=== PATIENT | female | born 1995 | race Caucasian/White ===

== ENCOUNTER 2016-07-26 10:59 | Outpatient (CLI) | payer OTHER | END 2016-07-26 11:00 | disposition home or self-care (01) | DX: Z78.9 Other specified health status (principal) ==

== ENCOUNTER 2018-04-09 16:14 | Emergency (ER) | payer OTHER ==
[2018-04-09 17:04] LABS: BASOPHILS % (AUTO) 0.4 %; EOSINOPHILS # (AUTO) 0.2 10^3/uL (0.0-0.7); EOSINOPHILS % (AUTO) 1.8 %; HGB - HEMOGLOBIN 12.1 g/dL (12.0-16.0); LYMPHOCYTES # (AUTO) 1.7 10^3/uL (1.5-3.5); LYMPHOCYTES % (AUTO) 20.9 %; MEAN CORPUSCULAR HEMOGLOBIN 31.4 pg (27.0-31.0); MEAN CORPUSCULAR HGB CONC 34.8 g/dL (32.0-36.0); MEAN CORPUSCULAR VOLUME 90.3 fL (81.0-99.0); MEAN PLATELET VOLUME 7.9 fL (7.9-10.8); MONOCYTES # (AUTO) 0.5 10^3/uL (0.0-1.0); MONOCYTES % (AUTO) 5.8 %; NEUTROPHILS # (AUTO) 5.8 10^3/uL (1.5-6.6); NEUTROPHILS % (AUTO) 71.1 %; PLT - PLATELET COUNT 243 10^3/uL (130-450); RED BLOOD COUNT 3.85 10^6/uL (4.20-5.40); WHITE BLOOD COUNT 8.2 x10^3/uL (4.8-10.8)
[2018-04-09 17:16] LABS: ALBUMIN 4.5 g/dL (3.2-5.5); ALBUMIN/GLOBULIN RATIO 1.5 (1.0-2.2); BILIRUBIN,TOTAL 0.4 mg/dL (0.2-1.0); CALCIUM 9.2 mg/dL (8.5-10.3); CREATININE 0.6 mg/dL (0.4-1.0); TOTAL PROTEIN 7.6 g/dL (6.7-8.2)
--- NOTE | 2018-04-09 18:00 | ED Physician Documentation ---
PD HPI FEMALE - Stated complaint Stated Complaint: FEMALE - Chief complaint Chief Complaint: General - History obtained from History obtained from: Patient - History of Present Illness Timing - onset: Last night Timing - duration: Hours (12) Timing - details: Abrupt onset, Still present (tapering down, was bleeding with couple pads per hours, and down to less than one hourly. Having cramps but less.) Associated symptoms: Pelvic pain, Vaginal bleeding. No: Fever, Vaginal discharge Contributing factors: (incomplete miscarriage with dates about 5 weeks last week.) Recently seen: Clinic (had early with miscarriage and seen in [place], given dose misoprostol on Monday and had bleeding and cramps Monday. That tapered and was okay yesterday, then with brisk bleeding again last night into today. Here for evaluation. Did not call the [facility].) Review of Systems Constitutional: denies: Fever, Chills, Myalgias GI: denies: Vomiting, Diarrhea Neurologic: denies: Generalized weakness, Near syncope PD PAST MEDICAL HISTORY - Past Medical History Cardiovascular: None Respiratory: None Neuro: None SHIPPING ROOM SUPERVISOR: None - Past Surgical History Past Surgical History: Yes HEENT: Tonsil/Adenoidectomy - Present Medications Home Medications: Ambulatory Orders Medication Instructions Recorded Confirmed No Known Home Medications 04/09/18 04/09/18 - Allergies Allergies/Adverse Reactions: Allergies Allergy/AdvReac Type Severity Reaction Status Date / Time No Known Drug Allergies Allergy Verified 04/09/18 16:29 - Social History Does the pt smoke?: No Smoking Status: Never smoker Does the pt drink ETOH?: No Does the pt have substance abuse?: No - Immunizations Immunizations are current?: No - POLST Patient has POLST: No PD ED PE NORMAL - Vitals Vital signs reviewed: Yes - General General: Alert and oriented X 3, Well developed/nourished - Cardiac Cardiac: RRR, No murmur - Respiratory Respiratory: Clear bilaterally - Abdomen Abdomen: Normal bowel sounds, Soft, Non distended, No organomegaly, Other (some lower abd tenderness without guarding nor percussion tenderness. ) - Female Female : Deferred - Back Back: No CVA TTP - Derm Derm: Normal color, Warm and dry - Neuro Neuro: Alert and oriented X 3, No motor deficit, Normal speech Results - Vitals Vitals: Vital Signs - 24 hr 04/09/18 04/09/18 04/09/18 16:26 18:36 20:50 Temperature 36.8 C Heart Rate 89 76 84 Respiratory 16 18 16 Rate Blood Pressure 121/75 115/82 H 122/74 O2 Saturation 99 99 98 04/09/18 21:47 Temperature Heart Rate Respiratory 16 Rate Blood Pressure O2 Saturation Oxygen O2 Source Room air - Labs Labs: Laboratory Tests 04/09/18 04/09/18 04/09/18 16:30 16:55 16:55 WBC 8.2 RBC 3.85 L Hgb 12.1 Hct 34.7 L MCV 90.3 MCH 31.4 H MCHC 34.8 RDW 13.0 Plt Count 243 MPV 7.9 Neut # (Auto) 5.8 Lymph # (Auto) 1.7 [place] # (Auto) 0.5 Eos # (Auto) 0.2 Baso # (Auto) 0.0 Absolute Nucleated RBC 0.01 Nucleated RBC % 0.1 Sodium 137 Potassium 3.9 Chloride 104 Carbon Dioxide 27 Anion Gap 6.0 BUN 13 Creatinine 0.6 Estimated GFR (MDRD) 125 Glucose 94 Calcium 9.2 Total Bilirubin 0.4 AST 19 ALT 14 Alkaline Phosphatase 49 Total Protein 7.6 Albumin 4.5 Globulin 3.1 Albumin/Globulin Ratio 1.5 Lipase 49 HCG, Quant 6043.00 Blood Type 04/09/18 16:55 WBC RBC Hgb Hct MCV MCH MCHC RDW Plt Count MPV Neut # (Auto) Lymph # (Auto) [place] # (Auto) Eos # (Auto) Baso # (Auto) Absolute Nucleated RBC Nucleated RBC % Sodium Potassium Chloride Carbon Dioxide Anion Gap BUN Creatinine Estimated GFR (MDRD) Glucose Calcium Total Bilirubin AST ALT Alkaline Phosphatase Total Protein Albumin Globulin Albumin/Globulin Ratio Lipase HCG, Quant Blood Type A NEGATIVE - Rads (name of study) pelvic U/S Radiology: Prelim report reviewed (thickened mass without sac c/w clot and retained POC. ) PD MEDICAL DECISION MAKING - ED course Complexity details: reviewed results (quant is 6K; was at 7K last week, so c/w incomplete miscarriage.), re-evaluated patient (Bleeding is tapered. Patient would prefer not having D&C if possible. ), considered differential (appears to have persistent POC by U/S and quant. Her bleeding has tapered here. She would prefer care in [place]. I talked with Nurse [facility] with [facility] public relations coordinator. To have patient take second dose misoprostol vaginally, and follow up with them in couple days. Did not feel needed D&C at this time. To return here or go to their facility if recurrent marked bleeding. ), d/w patient - Sepsis Event Vital Signs: Vital Signs - 24 hr 04/09/18 04/09/18 04/09/18 16:26 18:36 20:50 Temperature 36.8 C Heart Rate 89 76 84 Respiratory 16 18 16 Rate Blood Pressure 121/75 115/82 H 122/74 O2 Saturation 99 99 98 04/09/18 21:47 Temperature Heart Rate Respiratory 16 Rate Blood Pressure O2 Saturation Oxygen O2 Source Room air Departure - Departure Disposition: 01 Home, Self Care Clinical Impression: Incomplete miscarriage with blood clot Condition: Stable Record reviewed to determine appropriate education?: Yes Instructions: ED Miscarriage Incom Comments: Second dose of misoprostol and the on-call supervisor [employer] [facility] suggested trying it intravaginally. Drink lots of fluids. Call the [facility] clinic tomorrow to update them on how you are doing. They will likely want to see you in follow-up in the next couple of days. Return if severe pain or bleeding. Discharge Date/Time: 04/09/18 21:48
[2018-04-09] MEDS ORDERED: SODIUM CHLORIDE 0.9% 1,000 ML IV ONE (18:26)
--- NOTE | 2018-04-09 20:15 | Ultrasound Report ---
Reason: incomlete miscarriage/ miscarriage; vag bleed Procedure Date: 04/09/2018 Accession Number: [id number] / [id number] Procedure: US - OB First Trimester CPT Code: FULL RESULT: EXAM: FIRST TRIMESTER OBSTETRIC ULTRASOUND (Less than 11 weeks) EXAM DATE: 04/09/2018 07:29 PM. CLINICAL HISTORY: Incomplete miscarriage/miscarriage; vaginal bleed. LMP: 01/25/2018. COMPARISONS: None. TECHNIQUE: Transabdominal and transvaginal ultrasound examination with static image documentation. ASSESSMENT: Gestational Sac: Not seen. Large amount of inhomogeneous echogenic and slightly vascular material within the endometrial echo cavity, 14 cc. No discrete gestational sac. No discrete part. No cardiac motion. MATERNAL STRUCTURES: Uterus: Anteverted. Unremarkable. Cervix: Closed. Right Ovary/Adnexa: The ovary measures 2.3 x 2.6 x 2.7 cm, volume 8.6 cc. Unremarkable. Left Ovary/Adnexa: The ovary measures 3.3 x 2.0 x 1.4 cm, volume 4.8 cc. Normal left ovarian blood flow. 1.0 x 1.5 x 0.8 cm corpus luteal cyst. Free Fluid: None. Unremarkable. Other: None. IMPRESSION: 1. No evidence of an intrauterine gestational sac nor adnexal mass lesion. 2. 14 cc of complex vascular endometrial echo contents, consistent with retained products of conception. 3. No ovarian torsion. RADIA
[2018-04-09 20:51] VITALS: BP 122/74
== END 2018-04-09 21:48 | disposition home or self-care (01) ==
LOC: ED 16:14
DX: O03.1 Delayed or excessive hemorrhage following incomplete spontaneous abortion (principal)
CPT/HCPCS: 36415; 76801; 76817; 80053; 83690; 84702; 85025; 86900; 86901; 99283

== ENCOUNTER 2018-05-23 16:22 | Emergency (ER) | payer OTHER ==
[2018-05-23] MEDS ORDERED: RHO(D) IMMUNE GLOBULIN 300 MCG SYRINGE IM STA (16:32)
--- NOTE | 2018-05-23 16:35 | ED Physician Documentation ---
PD HPI FEMALE - Stated complaint Stated Complaint: 6 wks/CRAMP/BLEED - Chief complaint Chief Complaint: Abd Pain - History obtained from History obtained from: Patient - History of Present Illness Timing - onset: Today ( at 5 weeks 5 days gestation by date of unprotected intercourse presents with light vaginal bleeding and some resolved cramping today. She is Rh-.) Review of Systems Ten Systems: 10 systems reviewed and negative Constitutional: reports: Reviewed and negative Throat: reports: Reviewed and negative Cardiac: reports: Reviewed and negative Respiratory: reports: Reviewed and negative PD PAST MEDICAL HISTORY - Past Medical History Cardiovascular: None Respiratory: None Neuro: None MAT PUNCHER: None - Past Surgical History Past Surgical History: Yes HEENT: Tonsil/Adenoidectomy - Present Medications Home Medications: Ambulatory Orders Medication Instructions Recorded Confirmed No Known Home Medications 04/09/18 04/09/18 - Allergies Allergies/Adverse Reactions: Allergies Allergy/AdvReac Type Severity Reaction Status Date / Time No Known Drug Allergies Allergy Verified 05/23/18 16:30 - Social History Does the pt smoke?: No Smoking Status: Never smoker Does the pt drink ETOH?: No Does the pt have substance abuse?: No - Immunizations Immunizations are current?: No - POLST Patient has POLST: No PD ED PE NORMAL - Vitals Vital signs reviewed: Yes - General General: Alert and oriented X 3, No acute distress - HEENT HEENT: PERRL, EOMI - Neck Neck: Supple, no meningeal sign, No bony TTP - Cardiac Cardiac: RRR, No murmur - Respiratory Respiratory: No respiratory distress, Clear bilaterally - Abdomen Abdomen: Normal bowel sounds, Soft, Non tender - Back Back: No CVA TTP, No spinal TTP - Derm Derm: Normal color, Warm and dry - Extremities Extremities: No edema, No calf tenderness / cord - Neuro Neuro: Alert and oriented X 3, Normal speech Results - Vitals Vitals: Vital Signs - 24 hr 05/23/18 05/23/18 16:28 18:13 Temperature 36.6 C 36.7 C Heart Rate 88 84 Respiratory 16 16 Rate Blood Pressure 131/81 H 127/69 O2 Saturation 100 98 Oxygen O2 Source Room air - Labs Labs: Laboratory Tests 05/23/18 05/23/18 05/23/18 16:52 16:52 16:52 WBC 8.5 RBC 4.26 Hgb 12.7 Hct 38.1 MCV 89.4 MCH 29.9 MCHC 33.4 RDW 13.2 Plt Count 285 MPV 7.4 L Neut # (Auto) 6.0 Lymph # (Auto) 1.8 [place] # (Auto) 0.5 Eos # (Auto) 0.1 Baso # (Auto) 0.1 Absolute Nucleated RBC 0.01 Nucleated RBC % 0.1 Sodium 137 Potassium 3.8 Chloride 101 Carbon Dioxide 25 Anion Gap 11.0 BUN 11 Creatinine 0.6 Estimated GFR (MDRD) 124 Glucose 83 Calcium 9.3 Total Bilirubin 0.5 AST 21 ALT 16 Alkaline Phosphatase 47 Total Protein 7.9 Albumin 4.7 Globulin 3.2 Albumin/Globulin Ratio 1.5 Lipase 51 Serum HCG, Qual POSITIVE HCG, Quant 05507.00 - Rads (name of study) Pelvic sono Radiology: Prelim report reviewed (Likely yolk sac in the uterus without obvious IUP, there is some free fluid in the right pelvis.) PD MEDICAL DECISION MAKING - ED course ED course: 23-year-old at 5 weeks 5 days gestation by likely date of conception presents with bleeding and resolved pain. She is not in extremis. She was administered RhoGam for known blood type Rh-. Ultrasound as shown, nondiagnostic but reassuring in the sense that they see a yolk sac in the uterus. Case discussed by phone with Dr. Freitas who recommends close follow-up but no intervention necessary tonight. Departure - Departure Disposition: 01 Home, Self Care Clinical Impression: Threatened Condition: Good Record reviewed to determine appropriate education?: Yes Instructions: ED Miscarriage Poss Follow-Up: [facility] [Provider Group] Comments: Today your beta hCG was 16,000 and the ultrasound was nondiagnostic although something is in the uterus. You need to follow-up within a day or 2 in the clinic, call them tomorrow. Dr. Freitas was made aware of your case tonight.
[2018-05-23 16:55] LABS: BASOPHILS # (AUTO) 0.1 10^3/uL (0.0-0.1); BASOPHILS % (AUTO) 0.6 %; EOSINOPHILS # (AUTO) 0.1 10^3/uL (0.0-0.7); EOSINOPHILS % (AUTO) 1.7 %; HGB - HEMOGLOBIN 12.7 g/dL (12.0-16.0); LYMPHOCYTES # (AUTO) 1.8 10^3/uL (1.5-3.5); LYMPHOCYTES % (AUTO) 21.4 %; MEAN CORPUSCULAR HEMOGLOBIN 29.9 pg (27.0-31.0); MEAN CORPUSCULAR HGB CONC 33.4 g/dL (32.0-36.0); MEAN CORPUSCULAR VOLUME 89.4 fL (81.0-99.0); MEAN PLATELET VOLUME 7.4 fL (7.9-10.8); MONOCYTES # (AUTO) 0.5 10^3/uL (0.0-1.0); MONOCYTES % (AUTO) 5.9 %; NEUTROPHILS % (AUTO) 70.4 %; PLT - PLATELET COUNT 285 10^3/uL (130-450); RED BLOOD COUNT 4.26 10^6/uL (4.20-5.40); RED CELL DISTRIBUTION WIDTH 13.2 % (12.0-15.0); WHITE BLOOD COUNT 8.5 x10^3/uL (4.8-10.8)
[2018-05-23 17:18] LABS: ALBUMIN 4.7 g/dL (3.2-5.5); ALBUMIN/GLOBULIN RATIO 1.5 (1.0-2.2); ALKALINE PHOSPHATASE 47 IU/L (42-121); ALT ALANINE AMINOTRANSFERASE 16 IU/L (10-60); AST ASPARTATE AMINOTRANSFERASE 21 IU/L (10-42); BILIRUBIN,TOTAL 0.5 mg/dL (0.2-1.0); BUN - BLOOD UREA NITROGEN 11 mg/dL (6-20); CALCIUM 9.3 mg/dL (8.5-10.3); CARBON DIOXIDE - CO2 25 mmol/L (21-32); CHLORIDE 101 mmol/L (101-111); CREATININE 0.6 mg/dL (0.4-1.0); GFR - MDRD 124 (>89); GLUCOSE 83 mg/dL (70-100); LIPASE 51 U/L (22-51); SODIUM 137 mmol/L (135-145); TOTAL PROTEIN 7.9 g/dL (6.7-8.2)
[2018-05-23 17:36] LABS: HCG,QUALITATIVE BLOOD POSITIVE
[2018-05-23] MEDS ORDERED: RHO(D) IMMUNE GLOBULIN 300 MCG SYRINGE IM SCH (18:00)
--- NOTE | 2018-05-23 18:35 | Ultrasound Report ---
Reason: bleeding, , 5w5d Procedure Date: 05/23/2018 Accession Number: [id number] / [id number] Procedure: US - OB First Trimester CPT Code: FULL RESULT: EXAM: FIRST TRIMESTER OBSTETRIC ULTRASOUND (Less than 11 weeks) EXAM DATE: 05/23/2018 06:14 PM. CLINICAL HISTORY: Bleeding, , 5w5d. LMP: Unknown. COMPARISONS: None. TECHNIQUE: Transabdominal and transvaginal ultrasound examination with static image documentation. CLINICAL DATES: EGA 5 weeks 5 days based on stated dates. ASSESSMENT: Gestational Sac: Mildly irregular intrauterine gestational sac. Mean gestational sac diameter: 4.9 mm = . Embryo, yolk sac, and cardiac activity not visualized. Amniotic fluid: Not accurately assessed at this gestational age. Early placenta: Not visible at this gestational age. Other: There is a heterogeneous area adjacent to the gestational sac measuring 0.9 x 1.2 x 0.9 cm. MATERNAL STRUCTURES: Uterus: Anteverted. Unremarkable. Cervix: Closed. Right Ovary/Adnexa: The ovary measures 2.6 x 1.6 x 2.4 cm, volume 5.1 cc. Unremarkable. Left Ovary/Adnexa: Not seen. Free Fluid: Small volume in the posterior cul-de-sac and right adnexa.. Other: None. IMPRESSION: 1. There is an intrauterine gestational sac without visualization of yolk sac or pole. The mean gestational sac diameter is small and probably too early to differentiate normal early intrauterine from blighted ovum. There is probable small chung-gestational hemorrhage. Clinical and/or ultrasound follow-up may be of utility to further clarify. 2. Small free fluid in the pelvis and right adnexa. 3. Left ovary not visualized. RADIA
[2018-05-23 19:47] VITALS: BP 132/64
== END 2018-05-23 20:11 | disposition home or self-care (01) ==
LOC: ED 16:22
DX: O20.0 Threatened abortion (principal); Z3A.01 Less than 8 weeks gestation of pregnancy
CPT/HCPCS: 36415; 76801; 76817; 80053; 83690; 84702; 84703; 85025; 96372; 99283

== ENCOUNTER 2022-05-20 07:30 | Outpatient (CLI) | payer BC, OTHER | END 2022-05-20 23:59 | disposition home or self-care (01) | LOC: LAB.S 07:30 | PROVIDERS: ATTEND Emergency Medicine | DX: J02.9 Acute pharyngitis, unspecified (principal) | CPT/HCPCS: 87070 ==

== ENCOUNTER 2022-08-23 07:00 | Outpatient (CLI) | payer BC | END 2022-08-23 23:59 | disposition home or self-care (01) | LOC: LAB.S 07:00 | PROVIDERS: ATTEND Emergency Medicine | DX: J02.9 Acute pharyngitis, unspecified (principal) | CPT/HCPCS: 87070 ==

== ENCOUNTER 2022-09-12 07:00 | Outpatient (CLI) | payer BC ==
[2022-09-12 19:37] LABS: BILIRUBIN,URINE NEGATIVE (NEGATIVE); GLUCOSE, URINE (UA) NEGATIVE (NEGATIVE); KETONES,URINE (UA) NEGATIVE (NEGATIVE); LEUKOCYTE ESTERASE, URINE NEGATIVE (NEGATIVE); NITRITE,URINE NEGATIVE (NEGATIVE); OCCULT BLOOD,URINE NEGATIVE (NEGATIVE); PROTEIN,URINE NEGATIVE (NEGATIVE); UROBILINOGEN,URINE 0.2 (NORMAL) E.U./dL (NORMAL)
[2022-09-12 19:52] LABS: BACTERIA,URINE Few /HPF (None Seen); CLARITY,URINE HAZY (CLEAR); RBC,URINE 0-5 /HPF (0-5); SQUAMOUS EPITHELIAL CELL,UR MOD Squamous (<= Few); WBC,URINE 0-3 /HPF (0-5)
== END 2022-09-12 23:59 | disposition home or self-care (01) ==
LOC: LAB.S 07:00
PROVIDERS: ATTEND Emergency Medicine
DX: R30.0 Dysuria (principal)
CPT/HCPCS: 81001; 87086

== ENCOUNTER 2023-02-18 08:00 | Outpatient (CLI) | payer BC | END 2023-02-18 23:59 | disposition home or self-care (01) | LOC: LAB.S 08:00 | PROVIDERS: ATTEND Emergency Medicine | DX: J02.8 Acute pharyngitis due to other specified organisms (principal) | CPT/HCPCS: 87070; 87077 ==